=== PATIENT | male | born 1955 | race Caucasian/White ===

== ENCOUNTER 2018-03-14 07:53 | Day surgery (SDC) | payer MEDICARE, OTHER ==
[~2018-03-14] VITALS: Ht 177.8 cm; Wt 85.5 kg
[~2018-03-14 07:53] MED LIST: AMLO10 PO; ATOR10 PO; BENADRYL25 MG PO; Calcium Carbon500 M1 PO; Ramipril10 MG PO
== END 2018-03-14 10:45 | disposition home or self-care (01) ==
LOC: ORSCSDS 07:53
PROVIDERS: Internal Medicine Gastroenterology
PROC: 0DBH8ZX Excision of Cecum, Via Natural or Artificial Opening Endoscopic, Diagnostic (ICD-10-PCS; principal; 2018-03-14 09:00)
PROC: 0DB68ZX Excision of Stomach, Via Natural or Artificial Opening Endoscopic, Diagnostic (ICD-10-PCS; principal; 2018-03-14 09:00)
PROC: 0DBP8ZX Excision of Rectum, Via Natural or Artificial Opening Endoscopic, Diagnostic (ICD-10-PCS; principal; 2018-03-14 09:00)
DX: R10.31 Right lower quadrant pain (principal); R14.0 Abdominal distension (gaseous); D12.8 Benign neoplasm of rectum; D12.0 Benign neoplasm of cecum; K57.30 Diverticulosis of large intestine without perforation or abscess without bleeding; K59.00 Constipation, unspecified; K31.7 Polyp of stomach and duodenum; K29.70 Gastritis, unspecified, without bleeding; Z86.010 Personal history of colon polyps; Z79.899 Other long term (current) drug therapy
CPT/HCPCS: 87081; 88305; J0330; J1980; J2405; J7120

== ENCOUNTER → 2022-07-18 | Outpatient (CLI) | payer MEDICARE, OTHER | END | disposition home or self-care (01) | LOC: LAB 14:51 → LAB SHORT 14:51 | DX: L08.0 Pyoderma (principal) | CPT/HCPCS: 87070; 87205 ==